=== PATIENT | female | born 1960 | race Caucasian/White ===

== ENCOUNTER 2018-04-08 15:11 | Outpatient (CLI) | payer OTHER ==
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
== END 2018-04-08 15:12 | disposition home or self-care (01) ==
LOC: SCSRAD 15:11
PROVIDERS: ATTEND Psychiatry & Neurology Neurology
DX: M54.5 Low back pain (principal); Z98.1 Arthrodesis status
CPT/HCPCS: 72100

== ENCOUNTER 2018-04-17 08:36 | Outpatient (CLI) | payer OTHER ==
--- NOTE | 2018-04-22 11:10 | MMO ---
BILATERAL SCREENING MAMMOGRAM: Date: 04/17/18 COMPARISON: 03/27/17, 04/04/16. HISTORY: Annual screening exam. This patient's mammogram was interpreted with the assistance of computer-aided detection. FINDINGS: Scattered fibroglandular changes of both breasts are present. There are calcifications within the rig ht breast, which are felt to be stable as compared to the previous studies. IMPRESSION: BIRADS 2: Benign Finding(s) POS: [facility]
== END 2018-04-17 08:37 | disposition home or self-care (01) ==
LOC: SCSMAMMO 08:36
PROVIDERS: ATTEND Internal Medicine
DX: Z12.31 Encounter for screening mammogram for malignant neoplasm of breast (principal)
CPT/HCPCS: 77067

== ENCOUNTER 2018-06-03 08:35 | Outpatient (CLI) | payer OTHER ==
[2018-06-03 11:17] LABS: Estimated GFR-MDRD - POC Greater than 90
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
--- NOTE | 2018-06-03 12:24 | MRI ---
MRI CERVICAL SPINE WITHOUT CONTRAST: INDICATIONS: Cervical radiculopathy with bilateral hand numbness. COMPARISON: No comparisons are available. TECHNIQUE: Multiplanar, multisequence MR images were obtained of the cervical spine without IV contrast. FINDINGS: No definite acute fracture is evident. There is a partially empty sella. The craniocervical junction appears within normal limits. At C2-C3, there is no appreciable central canal or neural foraminal narrowing. At C3-C4, there is mild facet joint degenerative change bilaterally, left greater than right. At C4-C5, there is a broad-based disk bulge with facet joint degenerative change without appreciable central canal or neural foraminal narrowing. At C5-C6, there is a broad-based disk bulge with uncovertebral hypertrophy and facet joint degenerati ve change, greater on the left, inducing moderate left neural foraminal narrowing. At C6-C7, there is a broad-based disk osteophyte complex causing mild central canal narrowing without cord compression. There is no appreciable neural foraminal narrowing demonstrated. At C7-T1, there is no appreciable central canal or neural foraminal narrowing. Prevertebral soft tissues demonstrate a small, 8 mm T2 hyperintensity within the left thyroid gland. No lymphadenopathy is evident. IMPRESSION: 1. Mild central canal narrowing at C6-C7. 2. Moderate left neural foraminal narrowing at C5-C6. POS: [facility]
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
== END 2018-06-03 08:36 | disposition home or self-care (01) ==
LOC: BICCT 08:35
PROVIDERS: ATTEND Physician Assistant Surgical
DX: M47.26 Other spondylosis with radiculopathy, lumbar region (principal); M54.5 Low back pain; M54.12 Radiculopathy, cervical region; M54.2 Cervicalgia; M54.6 Pain in thoracic spine; R20.2 Paresthesia of skin; M48.061 Spinal stenosis, lumbar region without neurogenic claudication; M99.83 Other biomechanical lesions of lumbar region; M48.02 Spinal stenosis, cervical region; M99.81 Other biomechanical lesions of cervical region; M51.24 Other intervertebral disc displacement, thoracic region; Z98.890 Other specified postprocedural states
CPT/HCPCS: 72131; 72141; 72146; 72158; 82565

== ENCOUNTER 2019-03-13 12:25 | Emergency (ER) | payer OTHER, SELFPAY | END 2019-03-13 13:29 | disposition home or self-care (01) | LOC: ERS 12:25 | DX: J45.901 Unspecified asthma with (acute) exacerbation (principal); I10 Essential (primary) hypertension; F32.9 Major depressive disorder, single episode, unspecified | CPT/HCPCS: 94640; J7620 ==

== ENCOUNTER 2021-02-08 11:56 | Outpatient (CLI) | payer OTHER | END 2021-02-08 11:57 | disposition home or self-care (01) | LOC: BICMAMMO 11:56 | PROVIDERS: ATTEND Internal Medicine | DX: Z12.31 Encounter for screening mammogram for malignant neoplasm of breast (principal) | CPT/HCPCS: 77067 ==

== ENCOUNTER 2021-04-18 15:10 | Emergency (ER) | payer OTHER ==
[2021-04-18] MEDS ORDERED: Lidocaine 1% PF 5 ML VIAL ONE (17:39)
[2021-04-18] MEDS ORDERED: Ketorolac Tromethamine 30 MG/ML VIAL ONE (17:39)
== END 2021-04-18 19:23 | disposition home or self-care (01) ==
LOC: ERS 15:10
DX: S91.202A Unspecified open wound of left great toe with damage to nail, initial encounter (principal); S80.212A Abrasion, left knee, initial encounter; S80.211A Abrasion, right knee, initial encounter; I10 Essential (primary) hypertension; Z79.899 Other long term (current) drug therapy; X58.XXXA Exposure to other specified factors, initial encounter
CPT/HCPCS: 11750; 96372; J1885

== ENCOUNTER 2022-03-21 10:10 | Outpatient (CLI) | payer OTHER | END 2022-03-21 10:11 | disposition home or self-care (01) | LOC: BICRAD 10:10 | PROVIDERS: ATTEND Internal Medicine | DX: M25.551 Pain in right hip (principal); M25.521 Pain in right elbow; M25.851 Other specified joint disorders, right hip | CPT/HCPCS: 80053; 80061; 82306; 83036; 83970; 84443; 85025 ==

== ENCOUNTER 2022-04-04 09:58 | Outpatient (CLI) | payer MEDICAID, OTHER | END 2022-04-04 09:59 | disposition home or self-care (01) | LOC: BICMAMMO 09:58 | PROVIDERS: ATTEND Internal Medicine | DX: Z12.31 Encounter for screening mammogram for malignant neoplasm of breast (principal); Z13.820 Encounter for screening for osteoporosis; E21.3 Hyperparathyroidism, unspecified | CPT/HCPCS: 77063; 77067; 77080 ==

== ENCOUNTER 2022-10-10 09:28 | Outpatient (CLI) | payer OTHER | END 2022-10-10 09:29 | disposition home or self-care (01) | LOC: BICRAD 09:28 | PROVIDERS: ATTEND Internal Medicine | DX: M25.511 Pain in right shoulder (principal); M19.011 Primary osteoarthritis, right shoulder | CPT/HCPCS: 36415; 80048; 83036; 83970 ==

== ENCOUNTER 2023-06-12 11:49 | Outpatient (CLI) | payer OTHER | END 2023-06-12 11:50 | disposition home or self-care (01) | LOC: BICMAMMO 11:49 | PROVIDERS: ATTEND Internal Medicine | DX: Z12.31 Encounter for screening mammogram for malignant neoplasm of breast (principal); M54.16 Radiculopathy, lumbar region; M25.562 Pain in left knee; M11.262 Other chondrocalcinosis, left knee; S22.080A Wedge compression fracture of T11-T12 vertebra, initial encounter for closed fracture; Z98.1 Arthrodesis status | CPT/HCPCS: 72100; 77063; 77067 ==

== ENCOUNTER 2024-05-05 11:54 | Outpatient (CLI) | payer OTHER | END 2024-05-05 11:55 | disposition home or self-care (01) | LOC: BICRAD 11:54 | PROVIDERS: ATTEND Internal Medicine | DX: M25.511 Pain in right shoulder (principal); M54.2 Cervicalgia; M47.812 Spondylosis without myelopathy or radiculopathy, cervical region | CPT/HCPCS: 72040 ==

== ENCOUNTER 2024-10-07 13:14 | Outpatient (CLI) | payer OTHER | END 2024-10-07 13:15 | disposition home or self-care (01) | LOC: BICMAMMO 13:14 | PROVIDERS: ATTEND Internal Medicine | DX: Z12.31 Encounter for screening mammogram for malignant neoplasm of breast (principal) | CPT/HCPCS: 77067 ==